=== PATIENT | female | born 1995 | race Caucasian/White ===

== ENCOUNTER 2023-12-19 14:49 | Inpatient (IN) | payer OTHER ==
[~2023-12-19] VITALS: Ht 157.5 cm; Wt 44.0 kg
[~2023-12-19 14:49] MED LIST: B COMPLEX1 EACH PO; BIOTIN10 MG PO; PROBIOTIC DIGE1 EACH PO
[2023-12-19] MEDS: KETOROLAC TROMETHAMINE 30 MG/ML VIAL IV STA (17:29)
[2023-12-19] MEDS: SODIUM CHLORIDE 0.9% 1000ML 1,000 ML IV ONE (17:29)
[2023-12-19] MEDS: SODIUM CHLORIDE 0.9% 1000ML 1,000 ML IV SCH (17:30)
[2023-12-19] MEDS: ACETAMINOPHEN 325 MG TAB PO ONE (17:30)
[2023-12-19 19:05] VITALS: PULSE 99; RESP 17; TEMP 99.1
[2023-12-19 22:00] VITALS: BP 111/71; PULSE 107; RESP 16; TEMP 97.5; O2SAT 100
[2023-12-20] VITALS (10 sets, daily range): BP systolic 113–122; BP diastolic 74–90; PULSE 73–104; RESP 16–18; TEMP 97.2–98.1; O2SAT 98–100
[2023-12-20] MEDS ORDERED: ACETAMINOPHEN 325 MG TAB PO PRN
[2023-12-20] MEDS: HYDROCODONE/APAP 10MG-325MG TAB PO PRN (03:15)
[2023-12-20] MEDS: KETOROLAC TROMETHAMINE 30 MG/ML VIAL IV PRN (05:55)
[2023-12-20 07:05] LABS: BASOPHILS % 0.3 % (0.0-1.0); EOSINOPHILS # (AUTO) 0.1 (0.0-0.4); EOSINOPHILS % 1.1 % (0.0-6.0); HEMATOCRIT 33.7 % (34.2-44.1); HEMOGLOBIN 10.8 g/dL (12.0-16.0); LYMPHOCYTES # (AUTO) 1.9 (1.0-3.2); MEAN CORPUSCULAR HEMOGLOBIN 30.3 pg (28-32); MEAN CORPUSCULAR VOLUME 94.7 fL (81-99); MONOCYTES # (AUTO) 0.7 (0.2-0.8); MONOCYTES % 6.1 % (4.4-11.3); NEUTROPHILS % 76.1 % (38.7-80.0); PLATELET COUNT 155 x10e3/uL (140-360); RED BLOOD COUNT 3.56 x10e6/uL (3.6-5.1); RED CELL DISTRIBUTION WIDTH 13.6 % (11.7-14.4); WHITE BLOOD COUNT 11.86 x10e3/uL (4.8-10.8)
[2023-12-20 07:23] LABS: ANION GAP 11.1 mmol/L (8-16); CREATININE, SERUM 0.66 mg/dL (0.57-1.11)
[2023-12-20 07:27] LABS: POTASSIUM 3.1 mmol/L (3.5-5.1)
[2023-12-20] MEDS: SENNA-S TABLET PO SCH (08:32)
[2023-12-20] MEDS ORDERED: ALBUTEROL/IPRATROPIUM 3 ML NEB NEB PRN (09:30)
[2023-12-20] MEDS: LAMOTRIGINE 100 MG TAB PO SCH (17:06)
[2023-12-21] VITALS (7 sets, daily range): BP systolic 110–126; BP diastolic 71–85; PULSE 72–100; RESP 16–20; TEMP 98–98.4; O2SAT 95–100
[2023-12-21 05:27] LABS: BASOPHILS % 0.4 % (0.0-1.0); EOSINOPHILS # (AUTO) 0.1 (0.0-0.4); EOSINOPHILS % 1.3 % (0.0-6.0); HEMATOCRIT 34.6 % (34.2-44.1); HEMOGLOBIN 10.7 g/dL (12.0-16.0); LYMPHOCYTES # (AUTO) 2.2 (1.0-3.2); LYMPHOCYTES % 20.3 % (18.0-39.1); MEAN CORPUSCULAR HEMOGLOBIN 29.7 pg (28-32); MEAN CORPUSCULAR HGB CONC 30.9 g/dL (31-35); MEAN CORPUSCULAR VOLUME 96.1 fL (81-99); MONOCYTES # (AUTO) 0.7 (0.2-0.8); MONOCYTES % 6.6 % (4.4-11.3); NEUTROPHILS # (AUTO) 7.5 (2.1-6.9); PLATELET COUNT 146 x10e3/uL (140-360); RED CELL DISTRIBUTION WIDTH 13.9 % (11.7-14.4); WHITE BLOOD COUNT 10.61 x10e3/uL (4.8-10.8)
[2023-12-21 06:01] LABS: ANION GAP 10.9 mmol/L (8-16); CALCIUM 8.3 mg/dL (8.4-10.2); CREATININE, SERUM 0.64 mg/dL (0.57-1.11)
[2023-12-21 06:08] LABS: POTASSIUM 2.9 mmol/L (3.5-5.1)
[2023-12-21] MEDS: Vancomycin IV 1 GM in SODIUM CHLORIDE 0.9% 250ML 250 ML IV SCH (14:25)
[2023-12-21] MEDS: POTASSIUM CHLORIDE 10MEQ EA PO SCH (14:25)
[2023-12-21] MEDS: MEROPENEM 1 GM in SODIUM CHLORIDE 0.9% 100 ML IV SCH (16:01)
[2023-12-21] MEDS: DIPHENHYDRAMINE HCL 25 MG CAP PO PRN (17:41)
[2023-12-21 19:59] LABS: HIV 1&2 AB SCREEN NON-REACTIVE (NONREACTIVE)
[2023-12-22] VITALS (9 sets, daily range): BP systolic 110–118; BP diastolic 74–84; PULSE 78–116; RESP 18–22; TEMP 97.4–98.6; O2SAT 96–100
[2023-12-22 06:11] LABS: MAGNESIUM 1.6 MG/DL (1.3-2.1); PHOSPHORUS 2.8 MG/DL (2.3-4.7)
[2023-12-22 06:29] LABS: ANION GAP 11.3 mmol/L (8-16); BLOOD UREA NITROGEN < 5 mg/dL (7-26); CALCIUM 8.3 mg/dL (8.4-10.2); CARBON DIOXIDE 20 mmol/L (22-29); CHLORIDE 111 mmol/L (98-107); CREATININE, SERUM 0.59 mg/dL (0.57-1.11); EST GLOMERULAR FILTRATION RATE 127 ML/MIN (>=60); GLUCOSE 80 mg/dL (74-118); SODIUM 138 mmol/L (136-145)
[2023-12-22 06:34] LABS: BUN/CREATININE RATIO 8 (6-25); POTASSIUM 4.3 mmol/L (3.5-5.1)
[2023-12-22 08:08] LABS: BASOPHILS % 0.2 % (0.0-1.0); EOSINOPHILS # (AUTO) 0.2 (0.0-0.4); EOSINOPHILS % 2.4 % (0.0-6.0); HEMOGLOBIN 10.5 g/dL (12.0-16.0); LYMPHOCYTES # (AUTO) 2.4 (1.0-3.2); LYMPHOCYTES % 25.2 % (18.0-39.1); MEAN CORPUSCULAR HEMOGLOBIN 30.1 pg (28-32); MEAN CORPUSCULAR HGB CONC 31.8 g/dL (31-35); MEAN CORPUSCULAR VOLUME 94.6 fL (81-99); MONOCYTES # (AUTO) 0.7 (0.2-0.8); MONOCYTES % 7.7 % (4.4-11.3); NEUTROPHILS # (AUTO) 6.1 (2.1-6.9); NEUTROPHILS % 64.3 % (38.7-80.0); PLATELET COUNT 172 x10e3/uL (140-360); RED BLOOD COUNT 3.49 x10e6/uL (3.6-5.1); RED CELL DISTRIBUTION WIDTH 14.1 % (11.7-14.4); WHITE BLOOD COUNT 9.44 x10e3/uL (4.8-10.8)
[2023-12-23] VITALS (10 sets, daily range): BP systolic 105–121; BP diastolic 62–88; PULSE 77–97; RESP 17–20; TEMP 97.6–98.5; O2SAT 97–100
[2023-12-23] MEDS: MUPIROCIN 2% OINT 22 GM TUBE TOP SCH (12:14)
[2023-12-24] VITALS (9 sets, daily range): BP systolic 109–124; BP diastolic 69–84; PULSE 70–113; RESP 16–20; TEMP 97.4–99.1; O2SAT 96–100
[2023-12-24 06:19] LABS: BASOPHILS % 0.3 % (0.0-1.0); EOSINOPHILS # (AUTO) 0.3 (0.0-0.4); EOSINOPHILS % 4.5 % (0.0-6.0); HEMATOCRIT 33.5 % (34.2-44.1); HEMOGLOBIN 10.4 g/dL (12.0-16.0); LYMPHOCYTES # (AUTO) 2.4 (1.0-3.2); LYMPHOCYTES % 35.3 % (18.0-39.1); MEAN CORPUSCULAR HEMOGLOBIN 29.5 pg (28-32); MEAN CORPUSCULAR VOLUME 95.2 fL (81-99); MONOCYTES # (AUTO) 0.6 (0.2-0.8); MONOCYTES % 8.4 % (4.4-11.3); NEUTROPHILS # (AUTO) 3.5 (2.1-6.9); NEUTROPHILS % 51.4 % (38.7-80.0); PLATELET COUNT 179 x10e3/uL (140-360); RED BLOOD COUNT 3.52 x10e6/uL (3.6-5.1); RED CELL DISTRIBUTION WIDTH 13.6 % (11.7-14.4); WHITE BLOOD COUNT 6.82 x10e3/uL (4.8-10.8)
[2023-12-24 07:19] LABS: ANION GAP 10.9 mmol/L (8-16); CALCIUM 8.4 mg/dL (8.4-10.2); CREATININE, SERUM 0.61 mg/dL (0.57-1.11); POTASSIUM 3.9 mmol/L (3.5-5.1)
[2023-12-24 11:07] LABS: BASOPHILS % (MANUAL) 1 % (0-1.5); EOSINOPHILS % (MANUAL) 3 % (0-7); LYMPHOCYTES % (MANUAL) 35 % (19-48); MONOCYTES % (MANUAL) 8 % (3.4-9.0); NEUTROPHILS % (MANUAL) 52 % (40-74); REACTIVE LYMPHOCYTES 1
[2023-12-24 11:08] LABS: PLATELET ESTIMATE ADEQUATE; PLATELET MORPHOLOGY COMMENT NORMAL; RBC MORPHOLOGY COMMENT NORMAL
[2023-12-24] MEDS ORDERED: BUPIVACAINE HCL 0.5% INJ 30 ML VIAL INJ ONE (11:17)
[2023-12-24] MEDS ORDERED: MUPIROCIN 2% OINT 22 GM TUBE ONE (11:17)
[2023-12-25] VITALS (9 sets, daily range): BP systolic 100–120; BP diastolic 62–75; PULSE 81–111; RESP 16–20; TEMP 97.5–98.1; O2SAT 96–100
[2023-12-25] MEDS: Vancomycin IV 1 GM in SODIUM CHLORIDE 0.9% 250ML 250 ML IV SCH (06:42)
[2023-12-25] MEDS: ONDANSETRON HCL INJ 2MG/ML 2ML 2 MG/ML VIAL IV PRN (11:40)
[2023-12-25] MEDS: Morphine 4mg INJECTION 4 MG/ML INJ IV PRN (11:40)
[2023-12-25] MEDS ORDERED: KETOROLAC TROMETHAMINE 30 MG/ML VIAL IV PRN (11:45)
[2023-12-25] MEDS: MUPIROCIN 2% OINT 22 GM TUBE TOP SCH (16:03)
[2023-12-25] MEDS ORDERED: AUGMENTIN XR 11 EACH PO (17:26)
[2023-12-25] MEDS ORDERED: CELEBREX200 MG PO (17:43)
[2023-12-25] MEDS ORDERED: [UNRECOGNIZED DRUG - OTHER] PO (17:45)
[2023-12-25] MEDS ORDERED: LYRICA25 MG PO (17:46)
[2023-12-26] MEDS ORDERED: AMOX TR-K CLV1 EAC2 PO (20:34)
== END 2023-12-25 18:00 | disposition home or self-care (01) | DRG 513 ==
LOC: FSED 14:58 → ERHOLD 15:41 → MED/SURG2 22:49
PROVIDERS: ADMIT Internal Medicine; ATTEND Internal Medicine
PROC: 0L980ZZ Drainage of Left Hand Tendon, Open Approach (ICD-10-PCS; principal; 2023-12-24 11:30)
DX: M65.142 Other infective (teno)synovitis, left hand (principal); K50.90 Crohn's disease, unspecified, without complications; L03.114 Cellulitis of left upper limb; S61.452A Open bite of left hand, initial encounter; W55.01XA Bitten by cat, initial encounter; E87.8 Other disorders of electrolyte and fluid balance, not elsewhere classified; J44.9 Chronic obstructive pulmonary disease, unspecified; F17.200 Nicotine dependence, unspecified, uncomplicated; F31.9 Bipolar disorder, unspecified; G40.909 Epilepsy, unspecified, not intractable, without status epilepticus; K21.9 Gastro-esophageal reflux disease without esophagitis; M06.9 Rheumatoid arthritis, unspecified; Y92.009 Unspecified place in unspecified non-institutional (private) residence as the place of occurrence of the external cause; Z79.899 Other long term (current) drug therapy
CPT/HCPCS: 36415; 80048; 80053; 80202; 80307; 83605; 83735; 84100; 84702; 85025; 87040; 87071; 87075; 87205; 87390; 94799; 99284; G0433; G0435; J0295; J0690; J1885; J2185; J2270; J2405; J7030; J7050